=== PATIENT | female | born 1960 | race Caucasian/White ===

== ENCOUNTER 2020-09-08 04:33 | Day surgery (SDC) | payer BC ==
[2020-09-05 14:31] VITALS: BMI 30.9
[2020-09-08] MEDS ORDERED: LIDOCAINE HCL/PF 2% SDV 5ML VIAL ONE (13:46)
[2020-09-08] MEDS ORDERED: DEXAMETHASONE SOD PHOSPHATE 4 MG/1 ML VIAL ONE (13:46)
[2020-09-08] MEDS ORDERED: PROPOFOL 20 ML ONE (13:46)
[2020-09-08] MEDS ORDERED: MIDAZOLAM HCL 2 MG/2 ML SINGLE DOSE VIAL ONE (13:46)
[2020-09-08] MEDS ORDERED: KETOROLAC TROMETHAMINE 30 MG/1 ML VIAL ONE (14:14)
[2020-09-08] MEDS ORDERED: oxyCODONE HCL 5 MG TABLET PO PRN (14:44)
[2020-09-08] MEDS ORDERED: ONDANSETRON 4 MG/2 ML VIAL IVPUSH PRN (14:44)
[2020-09-08] MEDS ORDERED: LACTATED RINGERS SOLUTION 1,000 ML IV SCH (14:45)
[2020-09-08 16:53] VITALS: BP 114/77; PULSE 94; TEMP 97.8
== END 2020-09-08 16:58 | disposition home or self-care (01) ==
LOC: JASU-SURG 04:33
PROVIDERS: ATTEND Obstetrics & Gynecology
PROC: 0UB98ZX Excision of Uterus, Via Natural or Artificial Opening Endoscopic, Diagnostic (ICD-10-PCS; principal; 2020-09-08 14:00)
PROC: 0UDB7ZX Extraction of Endometrium, Via Natural or Artificial Opening, Diagnostic (ICD-10-PCS; 2020-09-08 14:00)
DX: N95.0 Postmenopausal bleeding (principal); N84.0 Polyp of corpus uteri
CPT/HCPCS: 94760